=== PATIENT | female | born 1940 | race Caucasian/White ===

== ENCOUNTER → 2021-10-20 10:41 | Outpatient (CLI) | payer MEDICARE, SELFPAY ==
--- NOTE | 2021-10-20 | DI.MG.S_ITS ---
BILATERAL DIGITAL SCREENING MAMMOGRAM 3D/2D WITH CAD: 10/20/2021 CLINICAL: Routine screening. Comparison is made to exams dated: 03/31/2019 mammogram, 07/12/2017 mammogram, and 09/12/2014 mammogram - outside location. There are scattered fibroglandular elements in both breasts. Current study was also evaluated with a Computer Aided Detection (CAD) system. No significant masses, calcifications, or other findings are seen in either breast. There has been no significant interval change. IMPRESSION: NEGATIVE There is no mammographic evidence of malignancy. A 1 year screening mammogram is recommended. This exam was interpreted at Station ID: [id number]. NOTE: For mammograms, a report in lay terms will be sent to the patient. Approximately 15% of breast malignancies will not be visualized mammographically. In the management of a palpable breast mass, a negative mammogram must not discourage biopsy of a clinically suspicious lesion. Electronically Signed By: Serge Saha M.D. at/nuzhat:10/20/2021 13:07:37 letter sent: Normal Exam ACR BI-RADS Category 1: Negative [id number]
== END ==
PROVIDERS: PCP Family Medicine; Referring Provider Family Medicine; Visit Provider Family Medicine
DX: Z12.31 Encounter for screening mammogram for malignant neoplasm of breast (principal)
CPT/HCPCS: 77063; 77067

== ENCOUNTER 2022-08-02 23:57 | Emergency (ER) | payer MEDICARE, SELFPAY ==
[2022-08-03 00:02] VITALS: BP 205/88; PULSE 63; O2SAT 98
[2022-08-03 00:05] VITALS: BP 205/88; RESP 18; TEMP 36.7; BMI 25.7
--- NOTE | 2022-08-03 00:15 | ED_ITS ---
HPI - Eye Problem General Chief complaint: Eye Problems Stated complaint: LEFT EYE PROBLEM Time Seen by Provider: 08/03/22 00:14 Source: patient Mode of arrival: Ambulatory Limitations: no limitations History of Present Illness HPI Narrative: the patient developed severe stinging in her left lateral eye several hours ago. She has injection. She has no drainage from her eye. Her visual acuity is unaffected. There is no edema around her eye. She is under care of non- small just regularly, she has no glaucoma. She does were glasses regularly. 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 There is no obvious injury, pain seems of started several hours later. She has no rhinorrhea, no sore throat, no URI symptoms. She has no fever chills. She has no other complaints. Review of Systems Constitutional Constitutional: Reports system reviewed and no additional complaints, except as documented Patient History Social History Smoking Status: Never smoker Smoking Status: Never smoker Substance Use Type: does not use Exam Initial Vital Signs Initial Vital Signs: Vital Signs Pulse Rate 63 08/03/22 00:02 Blood Pressure 205/88 H 08/03/22 00:02 Pulse Oximetry 98 08/03/22 00:02 Const General: cooperative, healthy appearing, comfortable, well developed and well groomed [facility] Head: normal to inspection, normocephalic and atraumatic Face and sinus: normal facial exam, sinuses nontender and face symmetric Mouth: oral mucosae normal Eyes Visual Nicole: normal visual nicole by confrontation Alignment and Position: alignment normal Periorbital: periorbital findings normal Eyelids: eyelids normal Conjunctivae: conjunctival abnormality left conjunctival injection; without disc harge Sclera: scleral abnormality left scleral injection Cornea: corneas normal Pupils: PERRL and pupil size on the right 5 and on the left 5 EOM: EOM intact bilaterally Direct ophthalmoscopy: photophobia not present Other: Left fluorescein exam reveals corneal abrasion at the 4 o'clock position. The upper lid was inverted.No foreign body is present. Course Course Course Narrative: Visual give acuities are reviewed, there is no significant abnormality. A corneal abrasion was noted on exam. The patient is started on erythromycin ointment. 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 Orders Ordered: Discontinued Medications Erythromycin (Erythromycin Ophth 1 Gm Oint) 1 applic EYE-LEFT NOW ONE Stop: 08/03/22 00:57 Last Admin: 08/03/22 00:59 Dose: 1 applic Documented By: MADI Fluorescein Sodium (Fluorescein 1 Mg Strip) 1 mg EYE-LEFT NOW ONE Stop: 08/03/22 00:36 Last Admin: 08/03/22 00:39 Dose: 1 mg Documented By: MADI Gentamicin Sulfate (Gentamicin 0.3% Ophth 5 Ml) 1 drops EYE-LEFT QID ALICIA Last Admin: 08/03/22 00:57 Dose: Not Given Documented By: MADI Proparacaine HCl (Proparacaine 0.5% Ophth Angelika) 1 drops EYE-BOTH NOW ONE Stop: 08/03/22 00:15 Last Admin: 08/03/22 00:17 Dose: 2 drop Documented By: MADI Vital Signs Vital signs: Vital Signs - 8 hr 08/03/22 00:05 08/03/22 00:02 08/03/22 00:02 Temperature 98.1 F Pulse Rate 63 Respiratory Rate 18 Blood Pressure 205/88 H 205/88 H Pulse Oximetry 98 Discharge Plan Departure Patient Disposition: Home Clinical Impression: Corneal abrasion Instructions: Corneal Abrasion Activity Restrictions/Additional Instructions: apply cold compresses over her left eye frequently. Tylenol every 4 hours as needed for pain. Erythromycin ointment should be applied to the left eye 4 times daily follow-up with your eye doctor in 2 days if not improved. Referrals: Sukh Sherwood MD [Primary Care Provider] - Visit Report Forms: Patient Portal/API
[2022-08-03] MEDS: PROPARACAINE 0.5% OPHTH SOL 1 DROPS EYE-BOTH (00:17)
[2022-08-03] MEDS: FLUORESCEIN 1 MG STRIP EYE-LEFT (00:39)
[2022-08-03] MEDS: ERYTHROMYCIN OPHTH 1 GM OINT 1 APPLIC EYE-LEFT (00:59)
== END 2022-08-03 01:03 | disposition home or self-care (01) ==
PROVIDERS: Emergency Provider Emergency Medicine; PCP Family Medicine
DX: S05.02XA Injury of conjunctiva and corneal abrasion without foreign body, left eye, initial encounter (principal)
CPT/HCPCS: 99282

== ENCOUNTER 2022-08-29 10:14 | Emergency (ER) | payer MEDICARE, SELFPAY ==
[2022-08-29] VITALS (12 sets, daily range): BP systolic 140–170; BP diastolic 64–73; PULSE 47–62; RESP 18; TEMP 36.9; O2SAT 97–98; BMI 25.4
--- NOTE | 2022-08-29 11:37 | PC.NURSE ---
pt states she did look at an ice cream she ate and it said made in a factory with gluten. pt has celiac disease.
[2022-08-29 12:03] LABS: Add Manual Diff / Slide Review NO; Basophils Absolute Auto 100 /uL (0-100); Basophils Percent Auto 0.6 % (0-2); Eosinophils Absolute Auto 100 /uL (0-450); Eosinophils Percent Auto 0.9 % (2-4); Hematocrit 40.6 % (36-46); Hemoglobin 13.9 g/dL (12.0-16.0); Lymphocytes Absolute Auto 2000 /uL (1100-4500); Lymphocytes Percent Auto 24.4 % (25-40); Mean Corpuscular HGB Conc 34.2 % (30-36); Mean Corpuscular Hemoglobin 29.8 PG (26-34); Mean Corpuscular Volume 87.3 fL (80-100); Monocytes Absolute Auto 800 /uL (0-900); Monocytes Percent Auto 9.2 % (3-14); Neutrophils Absolute Auto 5300 /uL (1500-7000); Neutrophils Percent Auto 64.9 % (50-75); Platelet Count 298 X10^3/uL (150-400); Red Blood Cell Count 4.64 X10^6/uL (4.0-5.2); White Blood Cell Count 8.1 X10^3/uL (4.5-11.0)
[2022-08-29 12:07] LABS: Alanine Aminotransferase 20 IU/L (<35); Albumin 4.3 g/dL (3.5-5.0); Albumin Globulin Ratio 1.3 (1.0-2.8); Alkaline Phosphatase 60 U/L (38-126); Aspartate Aminotransferase 30 IU/L (14-36); BUN Creatinine Ratio 15.4 (6-22); Bilirubin Total 0.7 mg/dL (0.2-1.3); Blood Urea Nitrogen 12 mg/dL (7-17); Calcium 9.5 mg/dL (8.4-10.2); Carbon Dioxide 29 mmol/L (22-32); Chloride 95 mmol/L (98-107); Estimated Glomerular Filt Rate > 60 mL/min (>60); Globulin 3.4 g/dL (1.7-4.1); Glucose 96 mg/dL (80-110); HEMOLYSIS < 15 (0-50); Lipase 64 U/L (23-300); Potassium 3.6 mmol/L (3.4-5.1); Sodium 133 mmol/L (137-145); Total Protein 7.7 g/dL (6.3-8.2)
--- NOTE | 2022-08-29 13:02 | ED.NAVMDI ---
HPI - Nausea/Vomiting/Diarrhea <Devin Mauro PA-C - Last Filed: 08/29/22 13:49> General Chief complaint: Nausea/Vomiting/Diarrhea Stated complaint: Diarrhea for the past week Time Seen by Provider: 08/29/22 12:04 History of Present Illness HPI Narrative: Patient is an 82-year-old female presents to the emergency room today with complaint of diarrhea for about a month. States last night she noticed diarrhea became clear in that she is here today mainly because she wanted to have her potassium level checked. States she had diarrhea about 2 months ago and was checked by her provider and her potassium was low. Patient was given potassium supplements but ran out of those. Denies nausea vomiting shortness of breath fever chills or abdominal pain. Administer history of hypertension and hypothyroidism where she takes losartan and levothyroxine. Review of Systems <Devin Mauro PA-C - Last Filed: 08/29/22 13:49> Review of Systems Narrative: R.O.S.: General: No fever, chills or fatigue. Cardiovascular: No chest pain or palpitations Respiratory: No S.O.B. HEENT: No congestion, ear pain, rhinorrhea, sore throat or tinnitus Gastrointestinal: Diarrhea : No urinary concerns Skin: No rash or associated abnormalities Musculoskeletal: No pain in muscles or joints, no limitation of range of motion, no paresthesia or numbness. ?? Neurological: Awake, alert and in not apparent distress. No Headaches, changes in vision or other related neurological concerns. Patient History <Devin Mauro PA-C - Last Filed: 08/29/22 13:49> Social History Smoking Status: Never smoker Smoking Status: Never smoker Substance Use Type: does not use Exam <MANJU Casarez Last Filed: 08/29/22 13:49> Narrative Exam Narrative: Physical Exam: ? General: normal appearance, well developed, well nourished, alert, and awake. Not in acute distress. ? Head: Normocephalic, no lesions. Chest: Lungs CTAB, no rales, rhonchi or wheezes. ?? Heart: RRR, no murmurs, rubs or gallops. Eyes: PERRLA, EOM's full, conjunctivae clear. ? Neuro: Physiological, no localizing findings, CN3-12 intact. ?? Extremities: Warm, well perfused, FROM, no deformities, no edema. ?? Skin: Normal, no rashes, no lesions noted. ?? PSYCHIATRIC: The mood is good, no blunted affect. Speech is clear. Thought process is linear, thought content is appropriate. The voice is without significant inflection. Gastrointestinal: Soft; NT; ND; Pos BS with Neg. rebound tenderness. No scars or major deformities noted on Visual Inspection. Initial Vital Signs Initial Vital Signs: Vital Signs Pulse Rate 62 08/29/22 10:43 Pulse Oximetry 97 08/29/22 10:43 <Zulma Galeas DO - Last Filed: 08/30/22 07:08> Initial Vital Signs Initial Vital Signs: Vital Signs Pulse Rate 62 08/29/22 10:43 Pulse Oximetry 97 08/29/22 10:43 Course <Devin Mauro PA-C - Last Filed: 08/29/22 13:49> Orders Ordered: Discontinued Medications Sodium Chloride (Normal Saline 0.9%) 1,000 mls @ 1,000 mls/hr IV BOLUS ONE Stop: 08/29/22 14:03 Last Admin: 08/29/22 13:45 Dose: Not Given Documented By: BT Vital Signs Vital signs: Vital Signs - 8 hr 08/29/22 10:48 Temperature 98.4 F Pulse Rate 58 L Respiratory Rate 18 Blood Pressure 170/73 H Pulse Oximetry 98 Oxygen Delivery Method Room Air <Zulma Galeas DO - Last Filed: 08/30/22 07:08> Orders Ordered: Discontinued Medications Sodium Chloride (Normal Saline 0.9%) 1,000 mls @ 1,000 mls/hr IV BOLUS ONE Stop: 08/29/22 14:03 Last Admin: 08/29/22 13:45 Dose: Not Given Documented By: BT Vital Signs Vital signs: Vital Signs - 8 hr 08/29/22 10:48 Temperature 98.4 F Pulse Rate 58 L Respiratory Rate 18 Blood Pressure 170/73 H Pulse Oximetry 98 Oxygen Delivery Method Room Air MDM - Nausea/Vomiting/Diarrhea <Devin Mauro PA-C - Last Filed: 08/29/22 13:49> Lab Data Result diagrams: 08/29/22 11:00 08/29/22 11:00 Labs: Lab Results 08/29/22 08/29/22 Range/Units 11:00 11:00 WBC 8.1 (4.5-11.0) X10^3/uL RBC 4.64 (4.0-5.2) X10^6/uL Hgb 13.9 (12.0-16.0) g/dL Hct 40.6 (36-46) % MCV 87.3 (80-100) fL MCH 29.8 (26-34) PG MCHC 34.2 (30-36) % RDW 14.0 (11.6-14.8) % Plt Count 298 (150-400) X10^3/uL Neut % (Auto) 64.9 (50-75) % Lymph % (Auto) 24.4 L (25-40) % Willacy % (Auto) 9.2 (3-14) % Eos % (Auto) 0.9 L (2-4) % Baso % (Auto) 0.6 (0-2) % Neut # (Auto) 5300 (6278-5894) /uL Lymph # (Auto) 2000 (1651-6078) /uL Willacy # (Auto) 800 (0-900) /uL Eos # (Auto) 100 (0-450) /uL Baso # (Auto) 100 (0-100) /uL Sodium 133 L (137-145) mmol/L Potassium 3.6 (3.4-5.1) mmol/L Chloride 95 L (98-107) mmol/L Carbon Dioxide 29 (22-32) mmol/L BUN 12 (7-17) mg/dL Creatinine 0.78 (0.52-1.04) mg/dL Estimated GFR > 60 (>60) mL/min BUN/Creatinine Ratio 15.4 (6-22) Glucose 96 (80-110) mg/dL Calcium 9.5 (8.4-10.2) mg/dL Total Bilirubin 0.7 (0.2-1.3) mg/dL AST 30 (14-36) IU/L ALT 20 (<35) IU/L Alkaline Phosphatase 60 (38-126) U/L Total Protein 7.7 (6.3-8.2) g/dL Albumin 4.3 (3.5-5.0) g/dL Globulin 3.4 (1.7-4.1) g/dL Albumin/Globulin Ratio 1.3 (1.0-2.8) Lipase 64 (23-300) U/L MDM Narrative Medical decision making narrative: Patient is a healthy pleasant 82-year-old female who presents to the emergency room today with complaint of continued diarrhea and a desire to have her potassium level checked. Physical exam and labs were unremarkable. Stool culture was ordered IV inserted and normal saline was ordered. Upon follow-up discussion with the patient patient states she feels fine her main concern was with her potassium being checked. States that she would like to be released now and that she will drink oral fluids at home will follow with her primary care provider with any nonemergent concerns. Patient also agrees to return to the emergency room should any emergent concerns arise. <Zulma Galeas, DO - Last Filed: 08/30/22 07:08> Lab Data Labs: Lab Results 08/29/22 08/29/22 Range/Units 11:00 11:00 WBC 8.1 (4.5-11.0) X10^3/uL RBC 4.64 (4.0-5.2) X10^6/uL Hgb 13.9 (12.0-16.0) g/dL Hct 40.6 (36-46) % MCV 87.3 (80-100) fL MCH 29.8 (26-34) PG MCHC 34.2 (30-36) % RDW 14.0 (11.6-14.8) % Plt Count 298 (150-400) X10^3/uL Neut % (Auto) 64.9 (50-75) % Lymph % (Auto) 24.4 L (25-40) % Willacy % (Auto) 9.2 (3-14) % Eos % (Auto) 0.9 L (2-4) % Baso % (Auto) 0.6 (0-2) % Neut # (Auto) 5300 (1560-6447) /uL Lymph # (Auto) 2000 (1593-2159) /uL Willacy # (Auto) 800 (0-900) /uL Eos # (Auto) 100 (0-450) /uL Baso # (Auto) 100 (0-100) /uL Sodium 133 L (137-145) mmol/L Potassium 3.6 (3.4-5.1) mmol/L Chloride 95 L (98-107) mmol/L Carbon Dioxide 29 (22-32) mmol/L BUN 12 (7-17) mg/dL Creatinine 0.78 (0.52-1.04) mg/dL Estimated GFR > 60 (>60) mL/min BUN/Creatinine Ratio 15.4 (6-22) Glucose 96 (80-110) mg/dL Calcium 9.5 (8.4-10.2) mg/dL Total Bilirubin 0.7 (0.2-1.3) mg/dL AST 30 (14-36) IU/L ALT 20 (<35) IU/L Alkaline Phosphatase 60 (38-126) U/L Total Protein 7.7 (6.3-8.2) g/dL Albumin 4.3 (3.5-5.0) g/dL Globulin 3.4 (1.7-4.1) g/dL Albumin/Globulin Ratio 1.3 (1.0-2.8) Lipase 64 (23-300) U/L Discharge Plan Departure Patient Disposition: Home Clinical Impression: Diarrhea Instructions: DI for Dehydration -- Adult, DI for Diarrhea and Traveler's Diarrhea -- Adult Activity Restrictions/Additional Instructions: *You have been diagnosed with diarrhea. Per your request we informed him of your normal potassium and withheld collecting stool or administering IV fluids at this time. And she suggested you we will hydrate orally and return to the emergency room if any emergent concerns arise. [ ] *What to do: *Please continue to take your regular medications as directed. [ ] New medication prescriptions sent to your pharmacy: [ ] [ ] New medication written as a paper prescription [x] No new medications given *Please follow up with your primary care provider in 2-3 days, call for an appointment. Let them know you were seen in the Emergency Department and that we ask that you be seen in follow up. We will electronically transmit a record of today's note if your PCP is in our system *If you do not have a primary care provider please contact the [facility] Resource line at [phone]. They will ask some questions about your medical history and help get you set up with a doctor in the community. *Return to Emergency Department if you should have any new, worsening or concerning symptoms, such as [fever greater than 101 F, shaking chills, worsening pain, persistent vomiting or other bothersome symptoms] Referrals: Sukh Sherwood MD [Primary Care Provider] - Visit Report Forms: Patient Portal/API <uZlma Galeas DO - Last Filed: 08/30/22 07:08> Cosign ED Attending Cosignature Attestation: I was immediately available in the department for consultation. Documentation has been reviewed.
== END 2022-08-29 13:58 | disposition home or self-care (01) ==
PROVIDERS: Emergency Medicine; Emergency Provider Physician Assistant; PCP Family Medicine
DX: R19.7 Diarrhea, unspecified (principal)
CPT/HCPCS: 80053; 83690; 85025; 99281; 99282

== ENCOUNTER → 2023-12-14 08:48 | Outpatient (CLI) | payer OTHER, SELFPAY ==
--- NOTE | 2023-12-14 08:52 | DI.US.S_ITS ---
PROCEDURE: US CAROTID DOPPLER BI INDICATIONS: Encounter for screening for cardiovascular disorde TECHNIQUE: Color and pulse Doppler interrogation was performed of both carotid systems, with image documentation and velocity measurements. COMPARISON: None. FINDINGS: Stenosis calculations are based on SRU (Society of Radiologists in Ultrasound) criteria. Right side: Brachial blood pressure: 141/68 mm Hg. Common carotid artery peak systolic velocity: 57 cm/sec. Internal carotid artery peak systolic velocity: 100 cm/sec. Internal carotid artery end diastolic velocity: 27 cm/sec. External carotid artery peak systolic velocity: 88 cm/sec. ICA/CCA peak systolic ratio: 1.8 . Mullen scale imaging description: No atherosclerotic plaque Percent internal carotid artery stenosis: 0 . Vertebral artery: Flow direction is antegrade. Left side: Brachial blood pressure: 141/65 mm Hg. Common carotid artery peak systolic velocity: 56 cm/sec. Internal carotid artery peak systolic velocity: 109 cm/sec. Internal carotid artery end diastolic velocity: 33 cm/sec. External carotid artery peak systolic velocity: 63 cm/sec. ICA/CCA peak systolic ratio: 1.9 . Mullen scale imaging description: Unremarkable Percent internal carotid artery stenosis: 0 . Vertebral artery: Flow direction is antegrade. IMPRESSION: Unremarkable duplex carotid ultrasound without stenosis Approved by: Herber Reyes M.D. on 12/14/2023 at 19:16
== END ==
PROVIDERS: PCP Family Medicine; Referring Provider Family Medicine; Visit Provider Family Medicine
DX: Z13.6 Encounter for screening for cardiovascular disorders (principal)
CPT/HCPCS: 93880

== ENCOUNTER → 2023-12-27 11:25 | Outpatient (CLI) | payer OTHER, SELFPAY ==
--- NOTE | 2023-12-27 11:35 | DI.CT.S_ITS ---
PROCEDURE: CT HEAD/BRAIN WO CON INDICATIONS: Dizziness and giddiness TECHNIQUE: Noncontrast 4.5 mm thick angled axial sections acquired from the foramen magnum to the vertex, with coronal and sagittal reformats. For radiation dose reduction, the following was used: automated exposure control, adjustment of mA and/or kV according to patient size. COMPARISON: None. FINDINGS: Image quality: Diagnostic. CSF spaces: Basal cisterns are patent. No extra-axial fluid collections. The ventricles are symmetric in size and shape. Brain: No intracranial bleeds or masses. There is cerebral volume loss for age, with resultant ventricular and sulcal prominence. There are periventricular and deep white matter chronic small vessel ischemic changes. There is intracranial internal carotid artery atherosclerosis. Skull and face: Calvarium and visualized facial bones appear intact, without suspicious lesions. Sinuses: Visualized sinuses and mastoids are clear. IMPRESSION: 1. No acute intracranial process. 2. Moderate atrophy and chronic microvascular ischemic changes. Dictated by: Maile Moss M.D. on 12/27/2023 at 15:37 Approved by: Maile Moss M.D. on 12/27/2023 at 15:37
== END ==
PROVIDERS: PCP Family Medicine; Referring Provider Family Medicine; Visit Provider Family Medicine
DX: I65.29 Occlusion and stenosis of unspecified carotid artery; I73.9 Peripheral vascular disease, unspecified
CPT/HCPCS: 70450

== ENCOUNTER → 2025-02-13 14:41 | Outpatient (CLI) | payer MEDICARE, SELFPAY ==
--- NOTE | 2025-02-13 14:43 | DI.ECHO.S_ITS ---
[facility]+ [facility] : : [address] : : [place] : : [id number] : : Phone: [phone] Echocardiogram Report + + :Name: JASKARAN MCGRAW Study Date: 02/13/2025 Height: 62 in : :[facility] ReadingLocation: Weight: 126 lb : : Gender: Female BSA: 1.6 m2 : :: 1940 Age: 84 yrs BP: 155/73 mmHg: :Reason For Study: CARDIAC MURMUR : :Ordering Physician: HALI, : :ASHISH Cox Performed By: Eleonora Rodriguez : :Referring: ASHISH LAL : + + Interpretation Summary The patient was in sinus bradycardia with heart rates between 51-55 bpm during the exam. The left ventricular cavity is small. The left ventricular ejection fraction is normal. The ejection fraction is estimated to be 60-65%. The right ventricle is normal in size and function. There is moderate mitral regurgitation. The mitral regurgitant jet is eccentrically directed. The aortic valve is moderately calcified. There is mildly reduced leaflet mobility. There is no hemodynamically significant valvular aortic stenosis. There is mild aortic regurgitation. There is mild to moderate tricuspid regurgitation. The right ventricular systolic pressure is estimated to be at least 34 mmHg based on an estimated right atrial pressure of 3 mm Hg. There is aortic root sclerosis/calcification. Procedure: A two-dimensional transthoracic echocardiogram with color flow and Doppler was performed. The study quality was technically adequate. There is no prior echocardiogram noted for this patient. The patient was in sinus bradycardia with heart rates between 51-55 bpm during the exam. Left Ventricle: The left ventricular cavity is small. Proximal septal thickening is noted. There is no thrombus. The ejection fraction is estimated to be 60-65%. The left ventricular ejection fraction is normal. There are no focal wall motion abnormalities. MV E/A: 1.3 Med Peak E' Lupillo: 5.5 cm/sec E/E' med: 22.4. Right Ventricle: The right ventricle is normal in size and function. Atria: The left atrial size is normal. Right atrial size is normal. There is no Doppler evidence for an interatrial shunt. Mitral Valve: The mitral valve leaflets are mildly calcified. There is moderate mitral annular calcification. No significant mitral valve stenosis. There is moderate mitral regurgitation. The mitral regurgitant jet is eccentrically directed. Aortic Valve: The aortic valve is trileaflet. The aortic valve is moderately calcified. There is mildly reduced leaflet mobility. There is no hemodynamically significant valvular aortic stenosis. There is mild aortic regurgitation. Tricuspid Valve: Tricuspid leaflets are thickened. There is mild to moderate tricuspid regurgitation. The right ventricular systolic pressure is estimated to be at least 34 mmHg based on an estimated right atrial pressure of 3 mm Hg. Pulmonic Valve: The pulmonic valve leaflets are thin and pliable; valve motion is normal. There is mild pulmonic regurgitation. Great Vessels: The aortic root is normal size. There is aortic root sclerosis/calcification. The dimensions of the ascending aorta are normal. The IVC is of normal diameter and collapses greater than 50% with a sniff. This suggests a low right atrial pressure of 3 mm Hg. Pericardium/ Pleura There is no pericardial effusion. There is no pleural effusion. MMode/2D Measurements & Calculations LVIDd: 3.9 cm LVOT diam: 2.0 cm LVIDs: 2.2 cm Ao root diam: 3.0 cm FS: 43.7 % asc Aorta Diam: 3.0 cm IVSd: 0.87 cm Ao Arch Diam (Prox Trans): 2.6 cm LVPWd: 0.73 cm LV trin[place]. diameter/BSA (cm/m^2): 2.5 LV sys. diameter/BSA (cm/m^2): 1.4 LA A2 area: 18.0 cm2 RA long axis: 5.0 cm LA A4 area: 14.9 cm2 RA area: 13.9 cm2 LA length (vol): 4.5 cm RA vol: 32.6 ml LA vol: 50.3 ml RA : 20.7 ml/m2 LA vol index: 32.0 ml/m2 IVC diam: 1.1 cm RVD1 (basal): 3.4 cm TAPSE: 2.4 cm Doppler Measurements & Calculations Ao V2 max: 187.9 cm/sec LVOT Max Lupillo: 108.7 cm/sec Ao V2 mean: 127.3 cm/sec LV V1 max P.7 mmHg Ao max P.6 mmHg LV V1 VTI: 24.0 cm Ao mean P.8 mmHg USAMA(I,D): 1.8 cm2 Ao V2 VTI: 43.6 cm USAMA(V,D): 1.8 cm2 sev ratio: 0.55 USAMA indexed to BSA (cm^2/m^2): 1.1 AI P1/2t: 705.5 msec AI dec slope: 154.4 cm/sec2 MV E max lupillo: 122.7 cm/sec TR max lupillo: 277.3 cm/sec MV A max lupillo: 96.1 cm/sec TR max P.8 mmHg MV E/A: 1.3 PA V2 max: 98.8 cm/sec Med Peak E' Lupillo: 5.5 cm/sec PA V2 mean: 70.0 cm/sec E/E' med: 22.4 PA mean P.2 mmHg Lat Peak E' Lupillo: 8.8 cm/sec PA pr(Accel): 19.9 mmHg E/E' lat: 14.0 E/e' average: 18.2 MV dec time: 0.21 sec SV(LVOT): 76.7 ml Reading Physician:04:30 PM
== END ==
PROVIDERS: PCP Family Medicine; Referring Provider Family Medicine; Visit Provider Family Medicine
DX: R01.1 Cardiac murmur, unspecified (principal); I08.3 Combined rheumatic disorders of mitral, aortic and tricuspid valves
CPT/HCPCS: 93306